=== PATIENT | male | born 1955 | race Two or more races ===

== ENCOUNTER 2024-06-27 15:07 | Outpatient (CLI) | payer BC | END 2024-06-27 15:18 | disposition home or self-care (01) | LOC: RAD 15:07 | PROVIDERS: ATTEND Physical Medicine & Rehabilitation Sports Medicine | DX: M54.6 Pain in thoracic spine (principal); M54.51 Vertebrogenic low back pain; M51.370 Other intervertebral disc degeneration, lumbosacral region with discogenic back pain only ==